=== PATIENT | female | born 1945 | race Asian ===

== ENCOUNTER 2017-05-10 10:50 | Inpatient (IN) | payer OTHER ==
[~2017-05-10] VITALS: Ht 144.8 cm; Wt 57.3 kg
[2017-05-10 12:54] LABS: BASOPHIL % 0.3 % (0-2); PLATELET COUNT 250 x10^3mcL (130-400)
[2017-05-10 12:58] LABS: RED CELL DISTRIBUTION WIDTH 15.6 % (11.5-14.5); rbc morphology (normal/abnorm) ABNORMAL (NORMAL)
[2017-05-10 13:02] LABS: CALCIUM 9.4 mg/dL (8.5-10.1); CARBON DIOXIDE 27.6 mmol/L (21-32); CHLORIDE SERUM 103 mmol/L (98-107); CREATININE SERUM 0.8 mg/dL (0.6-1.0); GFR1 > 60 mL/min; GLUCOSE SERUM 115 mg/dL (74-106); POTASSIUM SERUM 3.2 mmol/L (3.5-5.1); SODIUM SERUM 137 mmol/L (136-145)
[2017-05-10 13:07] LABS: ALBUMIN 3.7 g/dL (3.4-5.0); ALKALINE PHOSPHATASE 60 U/L (46-116); ALT/SGPT 38 U/L (14-59); AST/SGOT 32 U/L (15-37); BILIRUBIN TOTAL 0.37 mg/dL (0.20-1.00)
[2017-05-10 13:10] LABS: TOTAL PROTEIN, SERUM 8.3 g/dL (6.4-8.2)
[2017-05-10] MEDS ORDERED: HYDROCHLOROTH12.5 M2 PO (14:44)
[2017-05-10] MEDS ORDERED: TOPROL XL25 MG PO (14:44)
[2017-05-10] MEDS ORDERED: ZANTAC 300300 MG PO (14:45)
[2017-05-10 15:29] VITALS: BP 169/46
[2017-05-10 15:40] VITALS: BP 169/46
[2017-05-10 16:44] VITALS: BP 169/46
[2017-05-10 18:21] LABS: MAGNESIUM 2.1 mg/dL (1.8-2.4); PHOSPHOROUS 2.8 mg/dL (2.5-4.9)
[2017-05-10 18:24] LABS: CHOLESTEROL/HDL RATIO 3.9
[2017-05-10 18:25] VITALS: BP 173/55
[2017-05-10 18:29] LABS: T3 TOTAL 1.14 ng/mL
[2017-05-10 18:30] LABS: FREE T4 1.17 ng/dL (0.76-1.46); T4(THYROXINE) 8.8 ug/dL (4.7-13.3)
[2017-05-10 20:57] VITALS: BP 137/59
[2017-05-11 00:26] LABS: microscopic required? NO
[2017-05-11 00:55] LABS: urine erythrocyte NEGATIVE (NEGATIVE)
[2017-05-11 01:03] LABS: AMPHETAMINE QUAL UR NONE DETECTED (NEG <=1000)
[2017-05-11 06:19] VITALS: BP 140/53
[2017-05-11 07:25] LABS: CARBON DIOXIDE 26.5 mmol/L (21-32); CHLORIDE SERUM 105 mmol/L (98-107); CREATININE SERUM 0.8 mg/dL (0.6-1.0); GFR1 > 60 mL/min; GLUCOSE SERUM 128 mg/dL (74-106); MAGNESIUM 1.7 mg/dL (1.8-2.4); POTASSIUM SERUM 3.6 mmol/L (3.5-5.1); SODIUM SERUM 141 mmol/L (136-145)
[2017-05-11 08:13] LABS: BASOPHIL % 0.6 % (0-2); PLATELET COUNT 222 x10^3mcL (130-400)
[2017-05-11 08:16] LABS: RED CELL DISTRIBUTION WIDTH 15.4 % (11.5-14.5)
[2017-05-11 09:40] VITALS: BP 136/39
[2017-05-11 14:04] VITALS: BP 135/58
[2017-05-11 16:12] VITALS: BP 116/46
[2017-05-11 17:28] LABS: RED BLOOD CELLS 4.94 M/mm3 (4.10-5.10)
[2017-05-11 17:51] LABS: IRON 54 ug/dL (50-170); TOTAL IRON BINDING CAPACITY 271 ug/dL (250-450)
[2017-05-11 21:48] VITALS: BP 143/59
[2017-05-12 06:30] LABS: BASOPHIL % 0.3 % (0-2); PLATELET COUNT 238 x10^3mcL (130-400)
[2017-05-12 06:44] LABS: CALCIUM 9.2 mg/dL (8.5-10.1); CARBON DIOXIDE 28.3 mmol/L (21-32); CHLORIDE SERUM 103 mmol/L (98-107); CREATININE SERUM 0.8 mg/dL (0.6-1.0); GFR1 > 60 mL/min; GLUCOSE SERUM 103 mg/dL (74-106); MAGNESIUM 2.1 mg/dL (1.8-2.4); PHOSPHOROUS 5.2 mg/dL (2.5-4.9); POTASSIUM SERUM 3.9 mmol/L (3.5-5.1); SODIUM SERUM 140 mmol/L (136-145)
[2017-05-12 06:45] VITALS: BP 129/49
[2017-05-12 07:22] LABS: RED CELL DISTRIBUTION WIDTH 15.4 % (11.5-14.5)
[2017-05-12 09:16] VITALS: BP 120/51
[2017-05-12] MEDS ORDERED: FERG PO (11:07)
[2017-05-12] MEDS ORDERED: ATORVASTATIN CA40 M1 PO (11:07)
[2017-05-12] MEDS ORDERED: TOP50 PO (11:08)
[2017-05-12] MEDS ORDERED: MECLIZINE HCL12.5 MG PO (11:09)
[2017-05-12] MEDS ORDERED: ECO81 PO (11:09)
[2017-05-12] MEDS ORDERED: HYD25 PO (11:09)
[2017-05-12] MEDS ORDERED: LISINOPRIL2.5 MG PO (11:10)
[2017-05-12] MEDS ORDERED: VITC PO (11:12)
[2017-05-12 11:31] VITALS: BP 120/51
[2017-05-12 11:36] VITALS: BP 120/51
== END 2017-05-12 12:26 | disposition home or self-care (01) | DRG 206 ==
LOC: ED 10:50 → DU 13:37
PROVIDERS: Family Medicine; ADMIT Family Medicine
DX: M94.0 Chondrocostal junction syndrome [Tietze] (principal); I10 Essential (primary) hypertension; E87.6 Hypokalemia; E83.41 Hypermagnesemia; R73.03 Prediabetes; E78.5 Hyperlipidemia, unspecified; D50.9 Iron deficiency anemia, unspecified; E83.39 Other disorders of phosphorus metabolism; I34.0 Nonrheumatic mitral (valve) insufficiency; I36.1 Nonrheumatic tricuspid (valve) insufficiency; I37.1 Nonrheumatic pulmonary valve insufficiency; Z68.27 Body mass index [BMI] 27.0-27.9, adult
CPT/HCPCS: 82962; 83880; 84439; J3475; J3490; J7030; J8597; Q0092